=== PATIENT | female | born 1985 | race Caucasian/White ===

== ENCOUNTER 2017-12-31 19:16 | Emergency (ER) | payer OTHER ==
[~2017-12-31] VITALS: Ht 157.5 cm; Wt 67.1 kg
[~2017-12-31 19:16] MED LIST: BUCALSEP SPRAY30 ML MM; PROVENTIL HFA6.7 GM IH; ZOFRAN ODT8 MG/UDTAB PO; ZYNCOF 20-400120 ML PO
== END 2017-12-31 20:29 | disposition home or self-care (01) ==
LOC: ER 19:16
DX: J06.9 Acute upper respiratory infection, unspecified (principal)

== ENCOUNTER 2021-02-28 07:34 | Inpatient (IN) | payer OTHER ==
[~2021-02-28] VITALS: Ht 157.5 cm; Wt 73.5 kg
[2021-02-28] MEDS ORDERED: PRENATE ELITE1 EAC2 PO (08:20)
== END 2021-03-02 12:04 | disposition home or self-care (01) | DRG 807 ==
LOC: OB/GYN 07:34 → LDR 07:34 → OB/GYN 17:55
PROVIDERS: ADMIT Specialist; ATTEND Specialist
PROC: 10E0XZZ Delivery of Products of Conception, External Approach (ICD-10-PCS; principal; 2021-02-28)
PROC: 0HQ9XZZ Repair Perineum Skin, External Approach (ICD-10-PCS; 2021-02-28)
PROC: 10907ZC Drainage of Amniotic Fluid, Therapeutic from Products of Conception, Via Natural or Artificial Opening (ICD-10-PCS; 2021-02-28)
PROC: 3E033VJ Introduction of Other Hormone into Peripheral Vein, Percutaneous Approach (ICD-10-PCS; 2021-02-28)
PROC: 4A1HXFZ Monitoring of Products of Conception, Cardiac Rhythm, External Approach (ICD-10-PCS; 2021-02-28)
DX: O70.0 First degree perineal laceration during delivery (principal); Z37.0 Single live birth; Z3A.39 39 weeks gestation of pregnancy